=== PATIENT | female | born 1940 | race Caucasian/White ===

== ENCOUNTER 2019-06-09 17:39 | Emergency (ER) | payer MEDICARE, OTHER ==
--- NOTE | 2019-06-09 17:56 | EDM.PDOC ---
ED HPI GENERAL MEDICAL PROBLEM - General Chief Complaint: ENT Problem Stated Complaint: OBJECT STUCK IN EAR Time Seen by Provider: 06/09/19 17:42 - History of Present Illness INITIAL COMMENTS - FREE TEXT/NARRATIVE: HISTORY AND PHYSICAL: History of present illness: Patient is a 78-year-old female who presents to the emergency room with complaints of foreign body in the left ear. Patient uses a hearing aid that has a rubber insert and had noticed it had came off in her left ear. She was concerned about waiting until Tuesday as she did not want to get an infection. Offers no other concerns or complaints today. Review of systems: As per history of present illness and below otherwise all systems reviewed and negative. Past medical history: As per history of present illness and as reviewed below otherwise noncontributory. Surgical history: As per history of present illness and as reviewed below otherwise noncontributory. Social history: See social history for further information Family history: As per history of present illness and as reviewed below otherwise noncontributory. Physical exam: General: Well developed and well nourished 78-year-old female. Alert and oriented. Nontoxic-appearing and in no acute distress. HEENT: Atraumatic, normocephalic, pupils equal and reactive bilaterally, negative for conjunctival pallor or scleral icterus, mucous membranes moist, TMs normal right, foreign body in left ear canal, throat clear, neck supple, nontender, trachea midline. No drooling or trismus noted. No meningeal signs. No hot potato voice noted. Lungs: Clear to auscultation, breath sounds equal bilaterally, chest nontender. Heart: S1S2, regular rate and rhythm without overt murmur Abdomen: Soft, nondistended, nontender. Skin: Intact, warm, dry. No lesions or rashes noted. Extremities: Atraumatic, moves all extremities per self without difficulty or deficits, negative for cords or calf pain. Neurovascular unremarkable. Neuro: Awake, alert, oriented. Cranial nerves II through XII unremarkable. Cerebellum unremarkable. Motor and sensory unremarkable throughout. Exam nonfocal. Notes: Alligator clamp was used to gently remove the rubber tip from the hearing aid out of the left ear. She tolerated this well. Exam after removal shows intact TM without any erythema. Supportive care measures were reviewed and discussed. Voices understanding and is agreeable to plan of care. Denies any further questions or concerns at this time. Diagnostics: None Therapeutics: FB removal Prescription: None Impression: FB in left ear Plan: 1. Please make sure that you fix broken hearing aid before putting any ear canal. 2. Follow-up with your primary care provider as we discussed. Return to the ED as needed and as discussed. Definitive disposition and diagnosis as appropriate pending reevaluation and review of above. - Related Data Allergies Allergy/AdvReac Type Severity Reaction Status Date / Time labetalol HCl [From Trandate] Allergy Drug Verified 06/09/19 17:53 Induced Lupus enalapril maleate AdvReac Dry Cough Verified 06/09/19 17:53 [From Vasotec] enalaprilat dihydrate AdvReac Dry Cough Verified 06/09/19 17:53 [From Vasotec] Home Meds: Home Meds Bimatoprost [LUMIGAN 0.01% Ophth Soln] 1 drop EYEBOTH BEDTIME 04/08/15 [History] Brimonidine Tartrate [Alphagan P 0.1% Ophth Soln] 1 drop EYELF BID 04/08/15 [ History] Ezetimibe [Zetia] 1 tab PO BEDTIME 04/08/15 [History] Indapamide 2.5 mg PO DAILY 04/08/15 [History] Omeprazole 20 mg PO DAILY 04/08/15 [History] atorvaSTATin Calcium [Atorvastatin Calcium] 80 mg PO BEDTIME 04/08/15 [History] Past Medical History Cardiovascular History: Reports: High Cholesterol Gastrointestinal History: Reports: GERD, Other (See Below) Other Gastrointestinal History: Much better with weight loss and exercise ( reduced need for medication), Current Incisional Hernia Genitourinary History: Reports: Other (See Below) Other Genitourinary History: Mild fluid retention Musculoskeletal History: Reports: Fracture Other Musculoskeletal History: HX: fracturing both Big toes, Right wrist Endocrine/Metabolic History: Reports: Diabetes, Type II Other Endocrine/Metabolic History: Current no need for medication due to Weight loss and Exercise - Past Surgical History HEENT Surgical History: Reports: Cataract Surgery GI Surgical History: Reports: Small Bowel, Other (See Below) Female Surgical History: Reports: Tubal Ligation Neurological Surgical History: Reports: Other (See Below) Social & Family History - Family History Family Medical History: Noncontributory - Caffeine Use Caffeine Use: Reports: None ED ROS ENT - Review of Systems Review Of Systems: Comprehensive ROS is negative, except as noted in HPI. ED EXAM, ENT - Physical Exam Exam: See Below (See dictation) Departure - Departure Time of Disposition: 17:56 Disposition: Home, Self-Care 01 Clinical Impression: Foreign body of ear, left Qualifiers: Encounter type: initial encounter Qualified Code(s): T16.2XXA - Foreign body in left ear, initial encounter - Discharge Information Instructions: Ear Foreign Body, [id number] Referrals: Cem Gamez MD [Primary Care Provider] - Forms: ED Department Discharge Additional Instructions: The following information is given to patients seen in the emergency department who are being discharged to home. This information is to outline your options for follow-up care. We provide all patients seen in our emergency department with a follow-up referral. The need for follow-up, as well as the timing and circumstances, are variable depending upon the specifics of your emergency department visit. If you don't have a primary care physician on staff, we will provide you with a referral. We always advise you to contact your personal physician following an emergency department visit to inform them of the circumstance of the visit and for follow-up with them and/or the need for any referrals to a consulting specialist. The emergency department will also refer you to a specialist when appropriate. This referral assures that you have the opportunity for follow-up care with a specialist. All of these measure are taken in an effort to provide you with optimal care, which includes your follow-up. Under all circumstances we always encourage you to contact your private physician who remains a resource for coordinating your care. When calling for follow-up care, please make the office aware that this follow-up is from your recent emergency room visit. If for any reason you are refused follow-up, please contact the [facility] Emergency Department at and asked to speak to the emergency department charge nurse. [facility] [address] [place] [address] [id number] [address] [address] 1. Please make sure that you fix broken hearing aid before putting any ear canal. 2. Follow-up with your primary care provider as we discussed. Return to the ED as needed and as discussed. Sepsis Event Note - Focused Exam Date Exam was Performed: 06/09/19 Time Exam was Performed: 17:57
[2019-06-09 18:04] VITALS: BP 180/79; PULSE 82
== END 2019-06-09 17:58 | disposition home or self-care (01) ==
LOC: MW.ED 17:39
DX: T16.2XXA Foreign body in left ear, initial encounter (principal); E11.9 Type 2 diabetes mellitus without complications; Z88.8 Allergy status to other drugs, medicaments and biological substances; Z79.899 Other long term (current) drug therapy
CPT/HCPCS: 69200; 99282

== ENCOUNTER 2020-08-16 12:16 | Emergency (ER) | payer MEDICARE, OTHER ==
--- NOTE | 2020-08-16 12:29 | EDM.PDOC ---
ED HPI GENERAL MEDICAL PROBLEM - General Stated Complaint: CYST Time Seen by Provider: 08/16/20 12:27 Right Upper Abdomen Pain Score (Numeric/FACES): 5 - Related Data Allergies Allergy/AdvReac Type Severity Reaction Status Date / Time labetalol HCl [From Trandate] Allergy Drug Verified 08/16/20 12:36 Induced Lupus enalapril maleate AdvReac Dry Cough Verified 08/16/20 12:36 [From Vasotec] enalaprilat dihydrate AdvReac Dry Cough Verified 08/16/20 12:36 [From Vasotec] Home Meds: Home Meds Bimatoprost [LUMIGAN 0.01% Ophth Soln] 1 drop EYEBOTH BEDTIME 04/08/15 [History] Brimonidine Tartrate [Alphagan P 0.1% Ophth Soln] 1 drop EYELF BID 04/08/15 [History] Ezetimibe [Zetia] 1 tab PO BEDTIME 04/08/15 [History] Indapamide 2.5 mg PO DAILY 04/08/15 [History] Omeprazole 20 mg PO DAILY 04/08/15 [History] atorvaSTATin Calcium [Atorvastatin Calcium] 80 mg PO BEDTIME 04/08/15 [History] Past Medical History Cardiovascular History: Reports: High Cholesterol Gastrointestinal History: Reports: GERD, Other (See Below) Other Gastrointestinal History: Much better with weight loss and exercise (reduced need for medication), Current Incisional Hernia Genitourinary History: Reports: Other (See Below) Other Genitourinary History: Mild fluid retention Musculoskeletal History: Reports: Fracture Other Musculoskeletal History: HX: fracturing both Big toes, Right wrist Endocrine/Metabolic History: Reports: Diabetes, Type II Other Endocrine/Metabolic History: Current no need for medication due to Weight loss and Exercise - Infectious Disease History Infectious Disease History: Reports: None - Past Surgical History HEENT Surgical History: Reports: Cataract Surgery GI Surgical History: Reports: Small Bowel, Other (See Below) Female Surgical History: Reports: Tubal Ligation Neurological Surgical History: Reports: Other (See Below) Social & Family History - Family History Family Medical History: No Pertinent Family History - Caffeine Use Caffeine Use: Reports: None Course - Vital Signs Last Recorded V/S: Last Vital Signs Temp 97.3 F 08/16/20 12:37 Pulse 72 08/16/20 14:45 Resp 16 08/16/20 14:45 BP 144/60 H 08/16/20 14:45 Pulse Ox 94 L 08/16/20 14:45 - Orders/Labs/Meds Orders: Active Orders 24 hr Category Date Time Status CULTURE BLOOD [BC] Stat Lab 08/16/20 12:45 Received CULTURE BLOOD [BC] Stat Lab 08/16/20 13:10 Received Blood Culture x2 Reflex Set [OM.PC] Stat Oth 08/16/20 12:59 Ordered Labs: Laboratory Tests 08/16/20 08/16/20 08/16/20 Range/Units 12:45 12:45 12:45 WBC 10.35 (4.0-11.0) K/uL RBC 4.42 (4.30-5.90) M/uL Hgb 13.9 (12.0-16.0) g/dL Hct 41.4 (36.0-46.0) % MCV 93.7 (80.0-98.0) fL MCH 31.4 (27.0-32.0) pg MCHC 33.6 (31.0-37.0) g/dL RDW Std Deviation 48.9 (28.0-62.0) fl RDW Coeff of Hilda 14 (11.0-15.0) % Plt Count 189 (150-400) K/uL MPV 11.60 (7.40-12.00) fL Neut % (Auto) 72.9 (48.0-80.0) % Lymph % (Auto) 11.1 L (16.0-40.0) % [place] % (Auto) 12.3 (0.0-15.0) % Eos % (Auto) 3.3 (0.0-7.0) % Baso % (Auto) 0.4 (0.0-1.5) % Neut # (Auto) 7.6 H (1.4-5.7) K/uL Lymph # (Auto) 1.2 (0.6-2.4) K/uL [place] # (Auto) 1.3 H (0.0-0.8) K/uL Eos # (Auto) 0.3 (0.0-0.7) K/uL Baso # (Auto) 0.0 (0.0-0.1) K/uL Nucleated RBC % 0.0 /100WBC Nucleated RBCs # 0 K/uL Lactate 0.8 (0.20-2.00) mmol/L Sodium 139 (136-145) mmol/L Potassium 3.6 (3.5-5.1) mmol/L Chloride 100 (98-107) mmol/L Carbon Dioxide 28.6 (21.0-32.0) mmol/L BUN 18 (7.0-18.0) mg/dL Creatinine 1.3 H (0.6-1.0) mg/dL Est Cr Clr Drug Dosing 29.50 mL/min Estimated GFR (MDRD) 39.6 ml/min Glucose 115 H (74-106) mg/dL Calcium 9.3 (8.5-10.1) mg/dL Total Bilirubin 0.8 (0.2-1.0) mg/dL AST 14 L (15-37) IU/L ALT 22 (14-63) IU/L Alkaline Phosphatase 139 H (46-116) U/L Total Protein 8.3 H (6.4-8.2) g/dL Albumin 3.3 L (3.4-5.0) g/dL Globulin 5.0 H (2.6-4.0) g/dL Albumin/Globulin Ratio 0.7 L (0.9-1.6) Meds: Medications Discontinued Medications Generic Name Dose Route Start Last Admin Trade Name Freq PRN Reason Stop Dose Admin Lidocaine 5 ml 08/16/20 13:50 08/16/20 14:03 Lidocaine 2% 5 Ml Sdv INJECT 08/16/20 13:51 Not Given ONETIME ONE Lidocaine HCl 5 ml 08/16/20 13:57 08/16/20 14:03 Lidocaine 1% 5 Ml Sdv INJECT 08/16/20 13:58 5 ml ONETIME ONE Administration Lidocaine HCl Confirm 08/16/20 13:57 08/16/20 14:03 Lidocaine 1% 5 Ml Sdv Administered 08/16/20 13:58 Not Given Dose 5 ml .ROUTE .STK-MED ONE Oxycodone/Acetaminophen 1 tab 08/16/20 14:26 08/16/20 14:43 Acetaminophen/Oxycodone 325-5 Mg Tab PO 08/16/20 14:27 1 tab ONETIME ONE Administration Departure - Departure Disposition: Home, Self-Care 01 Clinical Impression: Abscess - Discharge Information Instructions: Skin Abscess Referrals: Cem Gamez MD [Primary Care Provider] - Forms: ED Department Discharge Additional Instructions: The following information is given to patients seen in the emergency department who are being discharged to home. This information is to outline your options for follow-up care. We provide all patients seen in our emergency department with a follow-up referral. The need for follow-up, as well as the timing and circumstances, are variable depending upon the specifics of your emergency department visit. If you don't have a primary care physician on staff, we will provide you with a referral. We always advise you to contact your personal physician following an emergency department visit to inform them of the circumstance of the visit and for follow-up with them and/or the need for any referrals to a consulting specialist. The emergency department will also refer you to a specialist when appropriate. This referral assures that you have the opportunity for follow-up care with a specialist. All of these measure are taken in an effort to provide you with optimal care, which includes your follow-up. Under all circumstances we always encourage you to contact your private physician who remains a resource for coordinating your care. When calling for follow-up care, please make the office aware that this follow-up is from your recent emergency room visit. If for any reason you are refused follow-up, please contact the [facility] Emergency Department at and asked to speak to the emergency department charge nurse. Please follow up with your primary care physician. If you do not have a primary care physician, see below: [facility] - General Surgery Professional Building [address] [place] [address], [address] [place] [address] He was seen today for redness to your right flank. He also had an abscess there that we were able to cut open and get some the pus out. We also have some packing in place. You said you have appointment to see surgery is Tuesday we recommend continuing to follow-up with him as Tuesday to check to make sure the wound is healing well and continued better. You already had antibiotics continue taking antibiotics as prescribed. If you develop any fevers or chills over the weekend please return to the ED.
--- NOTE | 2020-08-16 13:03 | EDM.PDOC ---
ED HPI GENERAL MEDICAL PROBLEM - General Chief Complaint: Skin Complaint Stated Complaint: CYST Time Seen by Provider: 08/16/20 12:27 Source of Information: Reports: Patient History Limitations: Reports: No Limitations - History of Present Illness INITIAL COMMENTS - FREE TEXT/NARRATIVE: Patient is a 79-year-old female who presents today for redness to her right flank. Patient that she saw general surgery a few days ago and was given antibiotics. Antibiotics did help a little bit but the pain is increasing source of swelling. Patient had area outlined here in the ED. Patient denies any systemic symptoms such as fever chills nausea vomiting or other medical complaints. Right Upper Abdomen Pain Score (Numeric/FACES): 8 - Related Data Allergies Allergy/AdvReac Type Severity Reaction Status Date / Time labetalol HCl [From Trandate] Allergy Drug Verified 08/16/20 12:36 Induced Lupus enalapril maleate AdvReac Dry Cough Verified 08/16/20 12:36 [From Vasotec] enalaprilat dihydrate AdvReac Dry Cough Verified 08/16/20 12:36 [From Vasotec] Home Meds: Home Meds Bimatoprost [LUMIGAN 0.01% Ophth Soln] 1 drop EYEBOTH BEDTIME 04/08/15 [History] Brimonidine Tartrate [Alphagan P 0.1% Ophth Soln] 1 drop EYELF BID 04/08/15 [History] Ezetimibe [Zetia] 1 tab PO BEDTIME 04/08/15 [History] Indapamide 2.5 mg PO DAILY 04/08/15 [History] Omeprazole 20 mg PO DAILY 04/08/15 [History] atorvaSTATin Calcium [Atorvastatin Calcium] 80 mg PO BEDTIME 04/08/15 [History] Past Medical History Cardiovascular History: Reports: High Cholesterol Gastrointestinal History: Reports: GERD, Other (See Below) Other Gastrointestinal History: Much better with weight loss and exercise (reduced need for medication), Current Incisional Hernia Genitourinary History: Reports: Other (See Below) Other Genitourinary History: Mild fluid retention Musculoskeletal History: Reports: Fracture Other Musculoskeletal History: HX: fracturing both Big toes, Right wrist Endocrine/Metabolic History: Reports: Diabetes, Type II Other Endocrine/Metabolic History: Current no need for medication due to Weight loss and Exercise - Infectious Disease History Infectious Disease History: Reports: None - Past Surgical History HEENT Surgical History: Reports: Cataract Surgery Other HEENT Surgeries/Procedures: Bilateral cataract with Lens implants GI Surgical History: Reports: Small Bowel, Other (See Below) Other GI Surgeries/Procedures: SMall bowel resection, Umbilical hernia repair Female Surgical History: Reports: Tubal Ligation Neurological Surgical History: Reports: Other (See Below) Other Neurological Surgeries/Procedures: Bilateral Carpal Tunnel release Social & Family History - Family History Family Medical History: No Pertinent Family History - Tobacco Use Tobacco Use Status *Q: Never Tobacco User - Caffeine Use Caffeine Use: Reports: Coffee - Recreational Drug Use Recreational Drug Use: No ED ROS GENERAL - Review of Systems Review Of Systems: See Below Constitutional: Reports: No Symptoms HEENT: Reports: No Symptoms Respiratory: Reports: No Symptoms Cardiovascular: Reports: No Symptoms Endocrine: Reports: No Symptoms GI/Abdominal: Reports: No Symptoms : Reports: No Symptoms Musculoskeletal: Reports: No Symptoms Skin: Reports: Rash Neurological: Reports: No Symptoms Psychiatric: Reports: No Symptoms Hematologic/Lymphatic: Reports: No Symptoms Immunologic: Reports: No Symptoms ED EXAM, SKIN/RASH Exam: See Below Exam Limited By: No Limitations General Appearance: Alert, WD/WN, No Apparent Distress Respiratory/Chest: No Respiratory Distress, Lungs Clear, Normal Breath Sounds Cardiovascular: Normal Peripheral Pulses, Regular Rate, Rhythm GI/Abdominal: Normal Bowel Sounds, Soft, Non-Tender Neurological: Alert, Oriented, CN II-XII Intact Skin: Other (redness to right flank ) ED SKIN PROCEDURES - I&D Site: abd wall Skin Prep: Isopropyl Alcohol (Alcohol) Local Anesthesia: Lidocaine: 1% Plain Local Anesthetic Volume: 3cc Area Incised With: 11 Blade Drainage: Purulent Probed to Break Up Loculations: Yes Packed With: 1/4 in. Iodoform Sterile Dressinx4(s) Complications: No Course - Vital Signs Last Recorded V/S: Last Vital Signs Temp 97.3 F 08/16/20 12:37 Pulse 83 08/16/20 12:37 Resp 18 08/16/20 12:37 BP 158/68 H 08/16/20 12:37 Pulse Ox 95 08/16/20 12:37 - Orders/Labs/Meds Orders: Active Orders 24 hr Category Date Time Status CULTURE BLOOD [BC] Stat Lab 08/16/20 12:45 Received CULTURE BLOOD [BC] Stat Lab 08/16/20 13:10 Received Blood Culture x2 Reflex Set [OM.PC] Stat Oth 08/16/20 12:59 Ordered Labs: Laboratory Tests 08/16/20 08/16/20 08/16/20 Range/Units 12:45 12:45 12:45 WBC 10.35 (4.0-11.0) K/uL RBC 4.42 (4.30-5.90) M/uL Hgb 13.9 (12.0-16.0) g/dL Hct 41.4 (36.0-46.0) % MCV 93.7 (80.0-98.0) fL MCH 31.4 (27.0-32.0) pg MCHC 33.6 (31.0-37.0) g/dL RDW Std Deviation 48.9 (28.0-62.0) fl RDW Coeff of Hilda 14 (11.0-15.0) % Plt Count 189 (150-400) K/uL MPV 11.60 (7.40-12.00) fL Neut % (Auto) 72.9 (48.0-80.0) % Lymph % (Auto) 11.1 L (16.0-40.0) % Adams % (Auto) 12.3 (0.0-15.0) % Eos % (Auto) 3.3 (0.0-7.0) % Baso % (Auto) 0.4 (0.0-1.5) % Neut # (Auto) 7.6 H (1.4-5.7) K/uL Lymph # (Auto) 1.2 (0.6-2.4) K/uL Adams # (Auto) 1.3 H (0.0-0.8) K/uL Eos # (Auto) 0.3 (0.0-0.7) K/uL Baso # (Auto) 0.0 (0.0-0.1) K/uL Nucleated RBC % 0.0 /100WBC Nucleated RBCs # 0 K/uL Lactate 0.8 (0.20-2.00) mmol/L Sodium 139 (136-145) mmol/L Potassium 3.6 (3.5-5.1) mmol/L Chloride 100 (98-107) mmol/L Carbon Dioxide 28.6 (21.0-32.0) mmol/L BUN 18 (7.0-18.0) mg/dL Creatinine 1.3 H (0.6-1.0) mg/dL Est Cr Clr Drug Dosing 29.50 mL/min Estimated GFR (MDRD) 39.6 ml/min Glucose 115 H (74-106) mg/dL Calcium 9.3 (8.5-10.1) mg/dL Total Bilirubin 0.8 (0.2-1.0) mg/dL AST 14 L (15-37) IU/L ALT 22 (14-63) IU/L Alkaline Phosphatase 139 H (46-116) U/L Total Protein 8.3 H (6.4-8.2) g/dL Albumin 3.3 L (3.4-5.0) g/dL Globulin 5.0 H (2.6-4.0) g/dL Albumin/Globulin Ratio 0.7 L (0.9-1.6) Meds: Medications Discontinued Medications Generic Name Dose Route Start Last Admin Trade Name Lien PRN Reason Stop Dose Admin Lidocaine 5 ml 08/16/20 13:50 08/16/20 14:03 Lidocaine 2% 5 Ml Sdv INJECT 08/16/20 13:51 Not Given ONETIME ONE Lidocaine HCl 5 ml 08/16/20 13:57 08/16/20 14:03 Lidocaine 1% 5 Ml Sdv INJECT 08/16/20 13:58 5 ml ONETIME ONE Administration Lidocaine HCl Confirm 08/16/20 13:57 08/16/20 14:03 Lidocaine 1% 5 Ml Sdv Administered 08/16/20 13:58 Not Given Dose 5 ml .ROUTE .STK-MED ONE - Re-Assessments/Exams Free Text/Narrative Re-Assessment/Exam: 08/16/20 14:22 Patient labs reviewed patient had an I&D at the bedside removal of pus coming out. Patient has follow-up and will see general surgery this Tuesday for wound check. Patient given strict return precautions. Departure - Departure Time of Disposition: 14:24 Disposition: Home, Self-Care 01 Condition: Good Clinical Impression: Abscess - Discharge Information *PRESCRIPTION DRUG MONITORING PROGRAM REVIEWED*: Not Applicable *COPY OF PRESCRIPTION DRUG MONITORING REPORT IN PATIENT [place]: Not Applicable Instructions: Skin Abscess Referrals: Cem Gamez MD [Primary Care Provider] - Additional Instructions: The following information is given to patients seen in the emergency department who are being discharged to home. This information is to outline your options for follow-up care. We provide all patients seen in our emergency department with a follow-up referral. The need for follow-up, as well as the timing and circumstances, are variable depending upon the specifics of your emergency department visit. If you don't have a primary care physician on staff, we will provide you with a referral. We always advise you to contact your personal physician following an emergency department visit to inform them of the circumstance of the visit and for follow-up with them and/or the need for any referrals to a consulting specialist. The emergency department will also refer you to a specialist when appropriate. This referral assures that you have the opportunity for follow-up care with a specialist. All of these measure are taken in an effort to provide you with optimal care, which includes your follow-up. Under all circumstances we always encourage you to contact your private physician who remains a resource for coordinating your care. When calling for follow-up care, please make the office aware that this follow-up is from your recent emergency room visit. If for any reason you are refused follow-up, please contact the [facility] Emergency Department at and asked to speak to the emergency department charge nurse. Please follow up with your primary care physician. If you do not have a primary care physician, see below: [facility] - General Surgery Professional [address], [address] [place] [address] He was seen today for redness to your right flank. He also had an abscess there that we were able to cut open and get some the pus out. We also have some packing in place. You said you have appointment to see surgery is Tuesday we recommend continuing to follow-up with him as Tuesday to check to make sure the wound is healing well and continued better. You already had antibiotics continu e taking antibiotics as prescribed. If you develop any fevers or chills over the weekend please return to the ED. Sepsis Event Note (ED) - Evaluation Sepsis Screening Result: No Definite Risk - Focused Exam Vital Signs: Vital Signs Temp Pulse Resp BP Pulse Ox 08/16/20 12:37 97.3 F 83 18 158/68 H 95 - My Orders Last 24 Hours: My Active Orders 08/16/20 12:45 CULTURE BLOOD [BC] Stat 08/16/20 12:59 Blood Culture x2 Reflex Set [OM.PC] Stat 08/16/20 13:10 CULTURE BLOOD [BC] Stat - Assessment/Plan Last 24 Hours: My Active Orders 08/16/20 12:45 CULTURE BLOOD [BC] Stat 08/16/20 12:59 Blood Culture x2 Reflex Set [OM.PC] Stat 08/16/20 13:10 CULTURE BLOOD [BC] Stat Plan: Patient is a 79-year-old female presents today for redness to the right flank. Patient has some increased swelling and likely has a abscess that will likely need to be drained. Patient currently already on antibiotics.
[2020-08-16 13:18] LABS: CARBON DIOXIDE,CO2 28.6 mmol/L (21.0-32.0); POTASSIUM,K 3.6 mmol/L (3.5-5.1)
[2020-08-16] MEDS ORDERED: Lidocaine 2% 5 ML SDV INJECT ONE (13:50)
[2020-08-16] MEDS ORDERED: Acetaminophen/oxyCODONE 325-5 MG Tab PO ONE (14:26)
[2020-08-16 15:09] VITALS: BP 144/60; PULSE 72
== END 2020-08-16 14:56 | disposition home or self-care (01) ==
LOC: MW.ED 12:16
DX: L02.211 Cutaneous abscess of abdominal wall (principal); E78.00 Pure hypercholesterolemia, unspecified; K21.9 Gastro-esophageal reflux disease without esophagitis; E11.9 Type 2 diabetes mellitus without complications; Z79.899 Other long term (current) drug therapy; Z88.8 Allergy status to other drugs, medicaments and biological substances
CPT/HCPCS: 10060; 36415; 80053; 83605; 85025; 87040; 99283; A9270

== ENCOUNTER 2020-08-17 12:14 | Emergency (ER) | payer MEDICARE, OTHER ==
[2020-08-17 12:30] VITALS: BP 165/69; PULSE 74
--- NOTE | 2020-08-17 12:59 | EDM.PDOC ---
ED HPI GENERAL MEDICAL PROBLEM - General Chief Complaint: Skin Complaint Stated Complaint: CYST Time Seen by Provider: 08/17/20 12:21 Source of Information: Reports: Patient History Limitations: Reports: No Limitations - History of Present Illness INITIAL COMMENTS - FREE TEXT/NARRATIVE: Patient is a 79-year-old female who presents today for evaluation of her wound. Patient had cellulitis and abscess to the right flank that was I&D yesterday by myself. Patient presented today states her pain is better and the redness is improving but wanted to check to make sure there was not an area that needs to be drained as well. Patient denies any fever chills nausea vomiting or other systemic symptoms. - Related Data Allergies Allergy/AdvReac Type Severity Reaction Status Date / Time labetalol HCl [From Trandate] Allergy Drug Verified 08/17/20 12:23 Induced Lupus enalapril maleate AdvReac Dry Cough Verified 08/17/20 12:23 [From Vasotec] enalaprilat dihydrate AdvReac Dry Cough Verified 08/17/20 12:23 [From Vasotec] Home Meds: Home Meds Bimatoprost [LUMIGAN 0.01% Ophth Soln] 1 drop EYEBOTH BEDTIME 04/08/15 [History] Ezetimibe [Zetia] 1 tab PO BEDTIME 04/08/15 [History] Indapamide 2.5 mg PO DAILY 04/08/15 [History] atorvaSTATin Calcium [Atorvastatin Calcium] 80 mg PO BEDTIME 04/08/15 [History] Famotidine 40 mg PO DAILY 08/17/20 [History] Past Medical History Cardiovascular History: Reports: High Cholesterol Gastrointestinal History: Reports: GERD, Other (See Below) Other Gastrointestinal History: Much better with weight loss and exercise (reduced need for medication), Current Incisional Hernia Genitourinary History: Reports: Other (See Below) Other Genitourinary History: Mild fluid retention [employer]OD [employer] History: Reports: Musculoskeletal History: Reports: Fracture Other Musculoskeletal History: HX: fracturing both Big toes, Right wrist Psychiatric History: Reports: None Endocrine/Metabolic History: Reports: Diabetes, Type II Other Endocrine/Metabolic History: Current no need for medication due to Weight loss and Exercise Dermatologic History: Reports: Other (See Below) Other Dermatologic History: cyst - Infectious Disease History Infectious Disease History: Reports: Chicken Pox, Measles, Mumps, Rubella - Past Surgical History HEENT Surgical History: Reports: Cataract Surgery Other HEENT Surgeries/Procedures: Bilateral cataract with Lens implants GI Surgical History: Reports: Small Bowel, Other (See Below) Other GI Surgeries/Procedures: SMall bowel resection, Umbilical hernia repair Female Surgical History: Reports: Tubal Ligation Neurological Surgical History: Reports: Other (See Below) Other Neurological Surgeries/Procedures: Bilateral Carpal Tunnel release Social & Family History - Family History Family Medical History: No Pertinent Family History - Caffeine Use Caffeine Use: Reports: Coffee ED ROS GENERAL - Review of Systems Review Of Systems: See Below Constitutional: Reports: No Symptoms HEENT: Reports: No Symptoms Respiratory: Reports: No Symptoms Cardiovascular: Reports: No Symptoms Endocrine: Reports: No Symptoms GI/Abdominal: Reports: No Symptoms : Reports: No Symptoms Musculoskeletal: Reports: No Symptoms Skin: Reports: No Symptoms Neurological: Reports: No Symptoms Psychiatric: Reports: No Symptoms Hematologic/Lymphatic: Reports: No Symptoms Immunologic: Reports: No Symptoms ED EXAM, SKIN/RASH Exam: See Below Exam Limited By: No Limitations General Appearance: Alert, WD/WN, No Apparent Distress Ears: Normal External Exam Nose: Normal Inspection, Normal Mucosa Respiratory/Chest: No Respiratory Distress, Lungs Clear Cardiovascular: Normal Peripheral Pulses GI/Abdominal: Normal Bowel Sounds, Soft, Non-Tender, Other (redness to right flank that is improved ) Course - Vital Signs Last Recorded V/S: Last Vital Signs Temp 96.1 F L 08/17/20 12:26 Pulse 74 08/17/20 12:26 Resp 15 08/17/20 12:26 BP 165/69 H 08/17/20 12:26 Pulse Ox 96 08/17/20 12:26 Departure - Departure Time of Disposition: 12:59 Disposition: Home, Self-Care 01 Condition: Good Clinical Impression: Wound check, abscess - Discharge Information *PRESCRIPTION DRUG MONITORING PROGRAM REVIEWED*: Not Applicable *COPY OF PRESCRIPTION DRUG MONITORING REPORT IN PATIENT [place]: Not Applicable Referrals: PCP,None [Primary Care Provider] - Additional Instructions: The following information is given to patients seen in the emergency department who are being discharged to home. This information is to outline your options for follow-up care. We provide all patients seen in our emergency department with a follow-up referral. The need for follow-up, as well as the timing and circumstances, are variable depending upon the specifics of your emergency department visit. If you don't have a primary care physician on staff, we will provide you with a referral. We always advise you to contact your personal physician following an emergency department visit to inform them of the circumstance of the visit and for follow-up with them and/or the need for any referrals to a consulting specialist. The emergency department will also refer you to a specialist when appropriate. This referral assures that you have the opportunity for follow-up care with a specialist. All of these measure are taken in an effort to provide you with optimal care, which includes your follow-up. Under all circumstances we always encourage you to contact your private physician who remains a resource for coordinating your care. When calling for follow-up care, please make the office aware that this follow-up is from your recent emergency room visit. If for any reason you are refused follow-up, please contact the [facility] Emergency Department at and asked to speak to the emergency department charge nurse. Please follow up with your primary care physician. If you do not have a primary care physician, see below: [facility] - General Surgery Professional Building [address] [place] [address], [address] [place] [address] You were seen today to evaluate your wound to your right side of your abdomen. We opened up yesterday and drained some pus out of it the area today looks to be improving and is redness. You have some concerns about a new abscess possibly forming it seems to be connected to the 1 week out of yesterday and should continue to drain. Again we recommend you follow-up with general surgery tomorrow and you have appointment already. If you go home you have any fevers chills increased pain or other concerning symptoms you can return to the ED. Sepsis Event Note (ED) - Evaluation Sepsis Screening Result: No Definite Risk - Focused Exam Vital Signs: Vital Signs Temp Pulse Resp BP Pulse Ox 08/17/20 12:26 96.1 F L 74 15 165/69 H 96 - Assessment/Plan Plan: Patient is a 79-year-old female who presents today for right-sided redness that is improved in size. Patient had a cellulitis and abscess that was drained yesterday the wound looks better. Patient is scheduled again to see general rivera melba tomorrow and will have the wound evaluated again. Patient has no systemic symptoms and will continue antibiotics patient is currently on.
== END 2020-08-17 13:12 | disposition home or self-care (01) ==
LOC: MW.ED 12:14
DX: Z48.817 Encounter for surgical aftercare following surgery on the skin and subcutaneous tissue (principal); E11.9 Type 2 diabetes mellitus without complications; E78.00 Pure hypercholesterolemia, unspecified; Z88.8 Allergy status to other drugs, medicaments and biological substances; Z79.899 Other long term (current) drug therapy
CPT/HCPCS: 99282

== ENCOUNTER 2021-08-04 09:36 | Day surgery (SDC) | payer MEDICARE, OTHER ==
[~2021-08-04 09:36] MED LIST: Propofol 200 MG/20 ML SDV ONE
[2021-08-04] MEDS ORDERED: fentaNYL 100 MCG/2 ML SDV ONE (10:06)
[2021-08-04] MEDS ORDERED: Lactated Ringers 1,000 ML IV SCH (10:15)
[2021-08-04] MEDS ORDERED: Propofol 200 MG/20 ML SDV ONE (11:41)
[2021-08-04 12:37] VITALS: BP 147/89; PULSE 61
== END 2021-08-04 13:15 | disposition home or self-care (01) ==
LOC: MW.SDS 09:36
PROVIDERS: ATTEND Surgery
DX: Z12.11 Encounter for screening for malignant neoplasm of colon (principal); E78.00 Pure hypercholesterolemia, unspecified; E11.9 Type 2 diabetes mellitus without complications; E66.9 Obesity, unspecified; Z68.34 Body mass index [BMI] 34.0-34.9, adult; Z86.010 Personal history of colon polyps; Z88.8 Allergy status to other drugs, medicaments and biological substances; Z79.82 Long term (current) use of aspirin; Z79.899 Other long term (current) drug therapy; Z90.49 Acquired absence of other specified parts of digestive tract; Z98.890 Other specified postprocedural states
CPT/HCPCS: G0105; J2704; J3010; J7120; 00812; 99100

== ENCOUNTER 2024-10-16 10:43 | Emergency (ER) | payer MEDICARE, OTHER | END 2024-10-16 10:54 | disposition left against medical advice (07) | LOC: MW.ED 10:43 | DX: Z53.21 Procedure and treatment not carried out due to patient leaving prior to being seen by health care provider (principal) ==